=== PATIENT | male | born 1965 | race African-American/Black ===

== ENCOUNTER 2016-08-06 09:59 | Emergency (ER) | payer SELFPAY ==
[~2016-08-06] VITALS: Ht 185.4 cm; Wt 100.1 kg
[~2016-08-06 09:59] MED LIST: JANUVIA100 MG PO; METFORMIN HCL1000 MG PO; PANTOPRAZOLE SO40 MG PO; TRAMADOL HCL50 MG PO; TYLENOL REGULA325 MG PO
[2016-08-06] MEDS ORDERED: TRAMADOL HCL50 MG PO (12:26)
[2016-08-06] MEDS ORDERED: CLEOCIN300 MG PO (12:26)
[2016-08-06] MEDS ORDERED: NAPROSYN500 MG PO (12:26)
[2016-08-06 12:44] VITALS: BP 163/80
== END 2016-08-06 13:06 | disposition home or self-care (01) ==
LOC: EME 09:59
PROC: 0C95XZZ Drainage of Upper Gingiva, External Approach (ICD-10-PCS; principal; 2016-08-06)
DX: K04.7 Periapical abscess without sinus (principal); L03.211 Cellulitis of face; K02.9 Dental caries, unspecified; F17.200 Nicotine dependence, unspecified, uncomplicated; Z71.6 Tobacco abuse counseling; Z91.013 Allergy to seafood
CPT/HCPCS: 99281; 99283